=== PATIENT | female | born 1950 | race Caucasian/White ===

== ENCOUNTER → 2016-08-09 | Outpatient (CLI) | payer MEDICARE, OTHER | LOC: MAMO 06-10 13:40 | DX: Z12.31 Encounter for screening mammogram for malignant neoplasm of breast (principal) | CPT/HCPCS: G0202 ==

== ENCOUNTER 2016-09-04 01:50 | Emergency (ER) | payer MEDICARE, OTHER | END 2016-09-04 05:55 | disposition home or self-care (01) | LOC: ER1 01:50 | DX: S42.291A Other displaced fracture of upper end of right humerus, initial encounter for closed fracture (principal); W19.XXXA Unspecified fall, initial encounter; Y92.003 Bedroom of unspecified non-institutional (private) residence as the place of occurrence of the external cause | CPT/HCPCS: 29105; 71010; 73000; 73030; 99284 ==

== ENCOUNTER → 2020-05-20 | Outpatient (CLI) | payer MEDICARE, OTHER | LOC: MAMO 04-13 15:00 | DX: Z12.31 Encounter for screening mammogram for malignant neoplasm of breast (principal); Z90.710 Acquired absence of both cervix and uterus | CPT/HCPCS: 77063; 77067 ==